=== PATIENT | male | born 1955 | race Caucasian/White ===

== ENCOUNTER 2018-02-25 05:44 | Day surgery (SDC) | payer OTHER ==
[~2018-02-25 05:44] MED LIST: COZAAR25 MG PO; [UNRECOGNIZED DRUG - OTHER] PO
== END 2018-02-25 09:05 | disposition home or self-care (01) ==
LOC: AMB-ENDOS 05:44
DX: K57.30 Diverticulosis of large intestine without perforation or abscess without bleeding (principal); K64.1 Second degree hemorrhoids